=== PATIENT | female | born 1935 | race Caucasian/White ===

== ENCOUNTER → 2017-01-17 | Outpatient (CLI) | payer MEDICARE ==
[~2017-01-17] MED LIST: ASCO1TAB4 PO; CALC1TAB PO; LEVO100T PO; MELO-184 PO
== END | disposition home or self-care (01) ==
LOC: CFH 12:09
PROVIDERS: ATTEND Nurse Practitioner Family
DX: J20.9 Acute bronchitis, unspecified (principal); Z90.49 Acquired absence of other specified parts of digestive tract
CPT/HCPCS: 71020